=== PATIENT | male | born 2000 | race African-American/Black ===

== ENCOUNTER 2023-09-28 04:29 | Emergency (ER) | payer SELFPAY ==
[2023-09-28] MEDS ORDERED: Boostrix 0.5 ML (Tdap) VIAL (>/=7 yrs of age) ONE (05:04)
== END 2023-09-28 08:17 ==
LOC: ERS 04:29
DX: S00.93XA Contusion of unspecified part of head, initial encounter (principal); S50.01XA Contusion of right elbow, initial encounter; S60.512A Abrasion of left hand, initial encounter; V48.0XXA Car driver injured in noncollision transport accident in nontraffic accident, initial encounter; W22.11XA Striking against or struck by driver side automobile airbag, initial encounter; Z23 Encounter for immunization
CPT/HCPCS: 70450; 90471; 90715